=== PATIENT | male | born 1935 | race Caucasian/White ===

== ENCOUNTER 2021-08-27 07:38 | Outpatient (RCR) | payer MEDICARE, SELFPAY ==
[2021-08-27] VITALS (10 sets, daily range): BP systolic 105–169; BP diastolic 49–94; PULSE 74–92; RESP 16; TEMP 36.2–37; O2SAT 94–97
[2021-08-27 08:18] LABS: Hematocrit 20.4 % (42.0-52.0); Hemoglobin 6.2 g/dL (14.0-18.0)
[2021-08-27] MEDS: SODIUM CHLORIDE 0.9% IV 250 ML 30 ML IV CONT (09:30)
[2021-08-27] MEDS: FUROSEMIDE INJ 40 MG/4 ML VIAL 20 MG IV PUSH (13:05)
== END 2021-11-25 23:59 | disposition home or self-care (01) ==
LOC: ANHCPCTRAN 07:38
PROVIDERS: PCP Family Medicine; Visit Provider Family Medicine
DX: D64.9 Anemia, unspecified (principal)
CPT/HCPCS: 36415; 36430; 85014; 85018; 86850; 86900; 86901; 86920; 96374; J1940; J7050; P9016

== ENCOUNTER 2021-08-30 14:47 | Inpatient (IN) | payer MEDICARE, SELFPAY ==
[2021-08-30] VITALS (14 sets, daily range): BP systolic 120–167; BP diastolic 50–108; PULSE 80–105; RESP 14–26; TEMP 36.4–36.8; O2SAT 92–98; BMI 27.8
--- NOTE | ~2021-08-30 | XR_ITS ---
EXAMINATION: XR chest 2V Exam Date/Time: 08/30/2021 16:05 CDT CLINICAL HISTORY: weakness, anemia, EXT SWELLING Comparison: None available. RESULT: Lines, tubes, and devices: None. Lungs and pleura: Diffuse reticular pattern, fissure fluid, bilateral costophrenic angle blunting gr eater on the right.. Cardiomediastinal silhouette: Unremarkable cardiomediastinal silhouette. Other: No acute osseous or upper abdominal finding. IMPRESSION: Pulmonary findings likely reflect mild pulmonary edema with small bilateral pleural effusions. Reviewed, dictated and finalized at location K. IMPRESSION: Pulmonary findings likely reflect mild pulmonary edema with small bilateral ple ural effusions.
--- NOTE | 2021-08-30 15:18 | ECG_ITS ---
Measurements Intervals [place] Rate: 86 P: 75 [place]: 173 QRS: 12 QRSD: 80 T: 65 QT: 355 QTc: 426 Interpretive Statements SINUS RHYTHM BORDERLINE ST-T WAVE ABNORMALITY- HIGH LATERAL LEADS BASELINE ARTIFACT- I, AVR, AVL, AVF, V1-V2 BORDERLINE ECG Electronically Signed On 08-30-2021 15:50:40 CDT by Osvaldo Magana D.O.
[2021-08-30 15:38] LABS: Basophils Percent Auto 0.3 % (0.2-1.2); Eosinophils Percent Auto 0.6 % (0-4.4); Immature Granulocyte Absolute 0.15 K/mm3 (0.00-0.031); Immature Granulocyte Percent A 2.1 % (0-0.5); Lymphocytes Absolute Auto 0.48 K/mm3 (0.9-3.2); Lymphocytes Percent Auto 6.8 % (18.3-44.2); Mean Corpuscular HGB Conc 29.9 g/dl (32-36); Mean Corpuscular Hemoglobin 29.9 pg (26-34); Mean Platelet Volume 9.9 fl (7.4-10.4); Monocytes Absolute Auto 0.6 K/mm3 (0.1-0.6); Monocytes Percent Auto 8.3 % (2.6-8.5); Neutrophils Absolute Auto 5.7 K/mm3 (1.3-6.7); Neutrophils Percent Auto 81.9 % (45.5-73.1); Platelet Count Result 240 k/mm3 (150-375); Red Blood Count 1.94 M/mm3 (4.6-6.20); Red Cell Distribution Width 16.6 % (11.5-14.5)
[2021-08-30 15:53] LABS: Alanine Aminotransferase 22 U/L (6-50); Albumin Level 2.4 g/dL (3.5-5.1); Alkaline Phosphatase 116 U/L (38-126); Anion Gap 6 mmol/L (8-16); Aspartate Amino Transferase 32 U/L (17-59); Bilirubin,Total 0.1 mg/dL (0.2-1.3); Blood Urea Nitrogen 75 mg/dL (9-20); Carbon Dioxide 25 mmol/L (22-30); Chloride 107 mmol/L (98-107); Estimated CRCL calculation 15 ml/min; Estimated Glomerular Filt Rate 18; Glucose 102 mg/dL (65-110); Potassium 4.3 mmol/L (3.4-5.0); Sodium 138 mmol/L (137-145)
[2021-08-30 16:03] LABS: Hematocrit 19.4 % (42.0-52.0); Hemoglobin 5.8 g/dL (14.0-18.0)
[2021-08-30 16:04] LABS: Platelet Estimate Adequate (Adequate)
[2021-08-30 16:05] LABS: Anisocytosis 2+ (NORMAL); Hypochromasia 1+ (NORMAL)
[2021-08-30 16:08] LABS: Ovalocytes 1+ (NORMAL)
--- NOTE | 2021-08-30 16:21 | ED.WEAKNESS ---
HPI - Weakness General Chief complaint: Weakness Stated complaint: weakness Time Seen by Provider: 08/30/21 16:20 Source: EMS and RN notes reviewed Mode of arrival: EMS Limitations: clinical condition History of Present Illness HPI Narrative: Patient is 86 years old white male came to the emergency room from [facility] for weakness and low hemoglobin. History of dementia. I was able to talk to his niece who told me that patient was at [facility], had 1 unit of blood transfusion for the first time in his life, unknown cause, then transferred to rehab for the last 7 days. Patient had low hemoglobin on August 27, received 2 units of blood transfusion,. I spoke to his family physician who told me that she does not know what is the underlying cause of his anemia at this time. Hemoglobin on August 27 was 6.2, received 2 units of blood transfusion, hemoglobin today is 5.8. After long conversation with his niece who have the POWER of estate attorney, decided to change his CODE STATUS from DNR to hospice. No medical intervention including blood transfusion or blood work-up.. Related Data Allergies Allergy/AdvReac Type Severity Reaction Status Date / Time No Known Allergies Allergy Verified 08/30/21 16:34 Review of Systems Review of Systems: ROS unobtainable: Yes unobtainable due to mental status Exam Narrative: General appearance: Well-developed, well-nourished Skin: Pale, extensive erythema of the lower extremities, upper extremities and lower abdomen Head: Normocephalic, nontraumatic Eyes: Clear conjunctiva ENT: Oropharynx normal, ears normal, nose normal Chest and respiratory: Airway patent, no respiratory distress, no accessory muscle use Heart: Regular rate/rhythm Abdomen: Soft, nontender, no organomegaly, quiet bowel sounds Vascular: Normal peripheral pulses, normal capillary refill. Musculoskeletal: Generalized weakness Neurologic: Alert to his name only Course Reevaluation(s) Reevaluation #1: Patient's niece who have the power of estate attorney spoke to the rest of the family and decided to change the CODE STATUS to hospice. Date: 08/30/21 Time: 19:17 Reevaluation #2: garland Pabonist accepted patient admission Date: 08/30/21 Time: 19:19 Vital Signs Vital signs: Vital Signs Temperature 36.8 C 08/30/21 15:14 Pulse Rate 84 08/30/21 15:14 Respiratory Rate 14 08/30/21 15:14 Blood Pressure 120/50 L 08/30/21 15:14 Pulse Oximetry 97 08/30/21 15:14 Temperature 36.8 C 08/30/21 15:14 Pulse Rate 84 08/30/21 15:14 Respiratory Rate 14 08/30/21 15:14 Blood Pressure 120/50 L 08/30/21 15:14 Pulse Oximetry 97 08/30/21 15:14 MDM - Weakness Lab Data Result diagrams: 08/30/21 15:33 08/30/21 15:33 Labs: Lab Results 08/30/21 08/30/21 Range/Units 15:33 15:33 WBC 7.0 (4.5-10.0) K/mm3 RBC 1.94 L (4.6-6.20) M/mm3 Hgb 5.8 L* (14.0-18.0) g/dL Hct 19.4 L* (42.0-52.0) % MCV 100.0 (80-100) fl MCH 29.9 (26-34) pg MCHC 29.9 L (32-36) g/dl RDW 16.6 H (11.5-14.5) % Plt Count 240 (150-375) k/mm3 MPV 9.9 (7.4-10.4) fl Immature Gran % (Auto) 2.1 H (0-0.5) % Neut % (Auto) 81.9 H (45.5-73.1) % Lymph % (Auto) 6.8 L (18.3-44.2) % [place] % (Auto) 8.3 (2.6-8.5) % Eos % (Auto) 0.6 (0-4.4) % Baso % (Auto) 0.3 (0.2-1.2) % Lymph # (Auto) 0.48 L (0.9-3.2) K/mm3 [place] # (Auto) 0.6 (0.1-0.6) K/mm3 Eos # (Auto) 0.0 (0-0.3) K/mm3 Baso # (Auto) 0.0 (0.0-0.1) K/mm3 Abs Immat Gran (auto) 0.15 H (0.00-0.031) K/mm3 Absolute Neuts (auto) 5.7 (1.3-6.7) K/mm3 Absolute Nucleated RBC 0.0 (0.0-0.012) K/mm3 Nuc
--- NOTE | 2021-08-30 19:23 | PC.NURSE ---
Per ERP Armando pt is on hospice and no further interventions will be done.
--- NOTE | 2021-08-30 21:23 | PM.IMHP ---
H&P: HPI History of Present Illness Date/Time: Patient requires inpatient monitoring with expected length of stay to exceed 2 midnights for management of care. 08/30/21 21:23 Chief Complaint: Weakness Narrative: Mr. Hightower is an 86-year-old gentleman who was sent to the emergency room with complaints of weakness. Per the emergency room patient was at [facility] approximately 2 weeks ago and received 1 unit of packed red blood cells. Patient was then sent to rehab 1 week ago and was diagnosed with anemia a 2nd time and patient received 2 units of packed red blood cells. Patient has had no further workup for this anemia. Patient denies any abdominal pain, lightheadedness, dizziness, syncopal, or near syncopal episodes. Patient denies any chest pain or shortness of breath. At this point time it is unknown why patient was at [facility]. Review of Systems Review of Systems: A 12 point review of systems was attempted with patient all pertinent positive and negative per HPI, unsure of how row reliable review of systems are secondary to patient's clinical condition. Meds Home Medications and Allergies Allergies Allergy/AdvReac Type Severity Reaction Status Date / Time No Known Allergies Allergy Verified 08/30/21 16:34 Vital Signs Vital Signs - 24 hr 08/30/21 15:14 08/30/21 16:33 08/30/21 16:46 Temperature 36.8 C Pulse Rate 84 94 89 Respiratory Rate 14 25 H 19 Blood Pressure 120/50 L 162/82 H 153/78 H Pulse Oximetry 97 94 92 08/30/21 17:01 08/30/21 17:16 08/30/21 17:31 Temperature Pulse Rate 91 88 93 Respiratory Rate 20 20 22 H Blood Pressure 146/77 H 166/84 H 167/78 H Pulse Oximetry 94 96 96 08/30/21 17:46 08/30/21 18:01 08/30/21 18:16 Temperature Pulse Rate 89 95 96 Respiratory Rate 26 H 16 20 Blood Pressure 158/70 H 157/83 H 163/88 H Pulse Oximetry 98 97 98 08/30/21 18:31 08/30/21 18:46 08/30/21 20:28 Temperature Pulse Rate 95 98 92 Respiratory Rate 14 24 H 18 Blood Pressure 137/74 134/108 H 141/73 H Pulse Oximetry 98 98 98 08/30/21 21:00 Temperature Pulse Rate 80 Respiratory Rate 16 Blood Pressure 141/80 H Pulse Oximetry 98 Exam Narrative: Constitutional: Patient is 86-year-old gentleman who is edematous and frail and in no acute distress. Patient is alert oriented times wanted to HEENT: Moist mucous membranes. No scleral icterus. No lymphadenopathy. Neck: No carotid bruits noted no JVD noted Lungs: Crackles are noted to bilateral lower lobes.. Cardiovascular: Apical pulse is regular rate and rhythm. S1-S2 noted, no S3 or S4 noted. No gallops, murmurs, or rubs noted. Abdomen: Soft, round, and nontender. No palpable masses. Extremities: Patient has 2 to 3+ edema noted of upper and lower extremities.. Nontender. Skin: Patient has multiple areas of ecchymosis noted to bilateral upper extremities.. Warm and dry. Skin is intact. Neurological: No focal neurological deficits. Cranial nerves II-XII grossly intact. Psychiatric: Cooperative, appropriate mood, and affect H&P: Results Labs Labs: Short CBC 08/30/21 Range/Units 15:33 WBC 7.0 (4.5-10.0) K/mm3 Hgb 5.8 L* (14.0-18.0) g/dL Hct 19.4 L* (42.0-52.0) % Plt Count 240 (150-375) k/mm3 BMP 08/30/21 15:33 Sodium 138 Potassium 4.3 Chloride 107 Carbon Dioxide 25 BUN 75 H Creatinine 3.30 H Glucose 102 Calcium 7.0 L Liver Function 08/30/21 Range/Units 15:33 Total Bilirubin 0.1 L (0.2-1.3) mg/dL AST 32 (17-59) U/L ALT 22 (6-50) U/L Alkaline Phosphatase 116 (38-126) U/L Albumin 2.4 L (3.5-5.1) g/dL Assessment and Plan Assessment and plan (1) Anemia: Qualifiers: Anemia type: unspecified type Qualified Code(s): D64.9 - Anemia, unspecified Code(s): D64.9 - Anemia, unspecified Status: Acute Assessment and Plan: Patient's [id number] is his niece and after discussion about anemia and a f
--- NOTE | 2021-08-30 21:49 | ADMGEN ---
This patient, Thaddeus Hightower, was admitted to [facility] Surg Room 310-01. Patient/family oriented to hospital policies and general routines including ID bracelet, bed and alarms, visiting hours, pain management, procedures, bathroom and other care routines, personal items, smoking policy, room service/diet, and visiting hours. Information on how to activate the Rapid Response Team has been discussed. Patient/Family are encouraged to report perceived risks to care and to ask questions if they do not understand what they are told or what they should do.
--- NOTE | 2021-08-30 22:15 | PC.NURSE ---
This pt. Thaddeus Hightower has been admitted into comfort care into room 310. His niece Dolores Ruelas states that she would still like him to take his home medications: lisinopril, timolol eye drops, and latanoprost eye drops.
[2021-08-31 05:47] VITALS: BP 123/66; PULSE 90; RESP 16; TEMP 36.1; O2SAT 92
--- NOTE | 2021-08-31 10:38 | PM.IMPN ---
Progress Note: A&P Assessment and Plan (1) Anemia: Qualifiers: Anemia type: unspecified type Qualified Code(s): D64.9 - Anemia, unspecified Code(s): D64.9 - Anemia, unspecified Status: Acute Assessment and Plan: Patient's [id number] is his niece and after discussion about anemia and a full workup patient's knees states that patient is a DNR and he does not want any further workup and they would like to place him on hospice. Refusal of blood products by power of slot service specialist, IV sticks, blood pressure is. Case Management has been consulted to facilitate hospice transition (2) Hospice care: Code(s): Z51.5 - Encounter for palliative care Status: Acute Assessment and Plan: Care management has been consulted for hospice referral and consultation. Patient's family requested no further laboratories to be drawn and that patient not be stuck with needles for any further workup. Subjective Date/time seen: 08/31/21 10:38 Patient is unable to provide an accurate review of systems or history due to his dementia. Niece was at his bedside and requested comfort measures. She reported that all 3 of her sisters was in agreement to continue with comfort care and have a hospice on board for the end of his life. They refused blood transfusions this morning, they refused additional IV sticks as well as blood pressures. Comfort care POLST form will be filled out by nursing staff and the power of slot service specialist. Case Management has been consulted to facilitate the patient's comfort care and hospice management at the other facility. Patient does not appear to be in distress Review of Systems Review of Systems: All systems reviewed & are unremarkable except as noted in HPI and below Exam Narrative: Constitutional: Patient is 86-year-old gentleman who is edematous and frail and in no acute distress. Patient is alert oriented times self. Disoriented to place, situation and time HEENT: Moist mucous membranes. No scleral icterus. No lymphadenopathy. Neck: No carotid bruits noted no JVD noted Lungs: Crackles are noted to bilateral lower lobes.. Cardiovascular: Apical pulse is regular rate and rhythm. S1-S2 noted, no S3 or S4 noted. No gallops, murmurs, or rubs noted. Abdomen: Soft, round, and nontender. No palpable masses. Extremities: Patient has 2 to 3+ edema noted of upper and lower extremities.. Nontender. Skin: Patient has multiple areas of ecchymosis noted to bilateral upper extremities.. Warm and dry. Skin is intact. Neurological: No focal neurological deficits. Cranial nerves II-XII grossly intact. Psychiatric: Cooperative, appropriate mood, and affect Objective Data Vital Signs Vital Signs: Vital Signs - 24 hr 08/30/21 15:14 08/30/21 16:33 08/30/21 16:46 Temperature 98.3 F Pulse Rate 84 94 89 Respiratory Rate 14 25 H 19 Blood Pressure 120/50 L 162/82 H 153/78 H Pulse Oximetry 97 94 92 08/30/21 17:01 08/30/21 17:16 08/30/21 17:31 Temperature Pulse Rate 91 88 93 Respiratory Rate 20 20 22 H Blood Pressure 146/77 H 166/84 H 167/78 H Pulse Oximetry 94 96 96 08/30/21 17:46 08/30/21 18:01 08/30/21 18:16 Temperature Pulse Rate 89 95 96 Respiratory Rate 26 H 16 20 Blood Pressure 158/70 H 157/83 H 163/88 H Pulse Oximetry 98 97 98 08/30/21 18:31 08/30/21 18:46 08/30/21 20:28 Temperature Pulse Rate 95 98 92 Respiratory Rate 14 24 H 18 Blood Pressure 137/74 134/108 H 141/73 H Pulse Oximetry 98 98 98 08/30/21 21:00 08/30/21 21:53 08/31/21 05:47 Temperature 97.6 F 96.9 F L Pulse Rate 80 105 H 90 Respiratory Rate 16 16 16 Blood Pressure 141/80 H 153/81 H 123/66 Pulse Oximetry 98 94 92 Intake/Output Intake/Output: Intake & Output 08/28/21 08/29/21 08/30/21 08/31/21 23:59 23:59 23:59 23:59 Intake Total 500 Balance 500 Meds/Results Medications: Active Medications Generic Name Dose Route Start Last Admin Trade Name Freq PRN Reas
--- NOTE | 2021-08-31 12:33 | PM.SD2 ---
Same Day Admit/Disch: HPI History of Present Illness Chief complaint: Anemia, renal failure, comfort measures Narrative: Thaddeus Hightower is a 86 year old male with a past medical history of anemia. The patient returned to our emergency department with complaints of weakness. Per the emergency department physicians in [facility] he the patient was at [facility] approximately 2 weeks on receive 1 unit packed red blood cells. And he was sent to the rehab facility 1 week ago and was diagnosed with anemia and received 2 more units of packed red blood cells. He did not have any further workup for his anemia at that time. Patient denied any abdominal pain, lightheadedness, dizziness, syncope or near syncopal episodes in the emergency department. He also denied any chest pain or shortness of breath. Family at bedside as well as the power of business attorney is decided to pursue hospice care therefore the patient was admitted to facilitate this. The refused further workup for his anemia, for the patient to receive IV blood products pre and more lab draws. Care management was consulted for the hospice referral in consultation. And the patient was transitioned over to hospice care and sent to the outlying facility. [facility] Social History Social History Smoking status: Former smoker Alcohol intake: former Substance use: never Spiritual care concerns: No Same Day Admit/Disch: Med Pre-admit Medications Home Medications Medication Instructions Recorded Confirmed Type latanoprost 1 drp EACH EYE HS 08/30/21 08/30/21 History lisinopril 20 mg PO DAILY 08/30/21 08/30/21 History timolol maleate 1 drp EACH EYE DAILY 08/30/21 08/30/21 History Exam Narrative: Constitutional: Patient is 86-year-old gentleman who is edematous and frail and in no acute distress. Patient is alert oriented times self. Disoriented to place, situation and time HEENT: Moist mucous membranes. No scleral icterus. No lymphadenopathy. Neck: No carotid bruits noted no JVD noted Lungs: Crackles are noted to bilateral lower lobes.. Cardiovascular: Apical pulse is regular rate and rhythm. S1-S2 noted, no S3 or S4 noted. No gallops, murmurs, or rubs noted. Abdomen: Soft, round, and nontender. No palpable masses. Extremities: Patient has 2 to 3+ edema noted of upper and lower extremities.. Nontender. Skin: Patient has multiple areas of ecchymosis noted to bilateral upper extremities.. Warm and dry. Skin is intact. Neurological: No focal neurological deficits. Cranial nerves II-XII grossly intact. Psychiatric: Cooperative, appropriate mood, and affect DS: Data Data Completed and Pending Labs on day of discharge: Labs from last 24 hours 08/30/21 08/30/21 08/30/21 16:30 15:33 15:33 WBC 7.0 RBC 1.94 L Hgb 5.8 L* Hct 19.4 L* MCV 100.0 MCH 29.9 MCHC 29.9 L RDW 16.6 H Plt Count 240 MPV 9.9 Immature Gran % (Auto) 2.1 H Neut % (Auto) 81.9 H Lymph % (Auto) 6.8 L [place] % (Auto) 8.3 Eos % (Auto) 0.6 Baso % (Auto) 0.3 Lymph # (Auto) 0.48 L [place] # (Auto) 0.6 Eos # (Auto) 0.0 Baso # (Auto) 0.0 Abs Immat Gran (auto) 0.15 H Absolute Neuts (auto) 5.7 Absolute Nucleated RBC 0.0 Nucleated RBC % 0.0 Platelet Estimate Adequate Hypochromasia 1+ Anisocytosis 2+ Ovalocytes 1+ Sodium 138 Potassium 4.3 Chloride 107 Carbon Dioxide 25 Anion Gap 6 L BUN 75 H Creatinine 3.30 H Estim Creat Clear Calc 15 Estimated GFR 18 L Glucose 102 Calcium 7.0 L Total Bilirubin 0.1 L AST 32 ALT 22 Alkaline Phosphatase 116 Total Protein 5.0 L Albumin 2.4 L Blood Type A Positive Antibody Screen Negative Crossmatch See Detail DS: Summary Time Spent with Patient Time attestation: Total time spent providing and/or coordinating discharge services: JANIE: Esa
[2021-08-31 13:15] LABS: EDCOVIDSCREEN Negative (Negative)
== END 2021-08-31 14:45 | disposition hospice, home (50) | DRG 951 ==
LOC: ANHED 19:19 → ANH3MEDSUR 08-31 07:14
PROVIDERS: Admitting Provider Internal Medicine; Emergency Provider Emergency Medicine; PCP Family Medicine; Visit Provider Nurse Practitioner Family
DX: Z51.5 Encounter for palliative care (principal); D64.9 Anemia, unspecified; Z66 Do not resuscitate; N19 Unspecified kidney failure; Z87.891 Personal history of nicotine dependence
CPT/HCPCS: 36415; 36430; 71046; 80053; 85014; 85018; 85025; 86850; 86900; 86901; 86920; 87426; 93005; 96374; 99285; C9803; J1940; J7050; P9016